=== PATIENT | female | born 1965 | race Caucasian/White ===

== ENCOUNTER → 2023-08-16 11:58 | Outpatient (REF) | payer BC, SELFPAY | LOC: HWWDC 11:58 | PROVIDERS: ATTENDING PHYSICIAN Nurse Practitioner Family | DX: Z12.31 Encounter for screening mammogram for malignant neoplasm of breast (principal) | CPT/HCPCS: 77063; 77067 ==

== ENCOUNTER → 2024-06-11 13:02 | Outpatient (REF) | payer BC, SELFPAY | LOC: HWRAD 13:02 | PROVIDERS: ATTENDING PHYSICIAN Internal Medicine Rheumatology; FAMILY PHYSICIAN Nurse Practitioner Adult Health | DX: M81.0 Age-related osteoporosis without current pathological fracture (principal) | CPT/HCPCS: 77080 ==

== ENCOUNTER → 2025-03-03 07:46 | Outpatient (REF) | payer BC, SELFPAY | LOC: HWWDC 07:46 | PROVIDERS: ATTENDING PHYSICIAN Nurse Practitioner Family | DX: Z12.31 Encounter for screening mammogram for malignant neoplasm of breast (principal) | CPT/HCPCS: 77063; 77067 ==